=== PATIENT | male | born 1990 | race Caucasian/White ===

== ENCOUNTER 2021-06-12 18:37 | Emergency (ER) | payer SELFPAY ==
[2021-06-13] MEDS ORDERED: VIBRAMYCIN100 MG PO (01:38)
[2021-06-13] MEDS ORDERED: NORCO 5-325 TA1 EACH PO (01:38)
== END 2021-06-13 01:43 | disposition home or self-care (01) ==
LOC: FER 18:37
DX: S61.213A Laceration without foreign body of left middle finger without damage to nail, initial encounter (principal); F17.210 Nicotine dependence, cigarettes, uncomplicated; Z23 Encounter for immunization; W45.8XXA Other foreign body or object entering through skin, initial encounter; Y92.89 Other specified places as the place of occurrence of the external cause; Y99.0 Civilian activity done for income or pay
CPT/HCPCS: 90471; 90715